=== PATIENT | male | born 1975 | race Caucasian/White ===

== ENCOUNTER 2019-07-12 18:25 | Emergency (ER) | payer SELFPAY ==
[~2019-07-12] VITALS: Ht 165.1 cm; Wt 60.0 kg
[2019-07-12] MEDS ORDERED: ADDERALL5 MG PO (18:40)
[2019-07-12] MEDS ORDERED: SYNTHROID0.075 MG/T PO (18:40)
[2019-07-12] MEDS ORDERED: TOPROL XL 25MG25 MG PO (18:41)
[2019-07-12] MEDS ORDERED: HCTZ12.5TAB PO (18:41)
[2019-07-12] MEDS ORDERED: ZOCOR 40MG40 MG PO (18:41)
[2019-07-12 18:42] VITALS: BP 131/80; PULSE 91; TEMP 98.4
== END 2019-07-12 18:50 | disposition left against medical advice (07) ==
LOC: COL.ER 18:25
DX: S49.90XA Unspecified injury of shoulder and upper arm, unspecified arm, initial encounter (principal); X58.XXXA Exposure to other specified factors, initial encounter